=== PATIENT | male | born 1995 | race Caucasian/White ===

== ENCOUNTER 2022-04-18 10:36 | Inpatient (IN) ==
[2022-04-18] MEDS ORDERED: Naloxone 0.4 MG/ML INJ IVP PRN (12:53)
[2022-04-18] MEDS ORDERED: *HR* Heparin 5,000 UNIT/ML VIAL IVP PRN ×2 (12:56)
[2022-04-18] MEDS ORDERED: Ibuprofen 600 MG TABLET PO PRN (13:55)
[2022-04-18 14:26] LABS: Heparin anti-factor XA UFH 0.52 IU/mL (0.30-0.70)
[2022-04-18 14:36] LABS: INR 1.2; Prothrombin Time 12.9 Seconds (9.4-12.1)
[2022-04-18] MEDS: Heparin 25,000UNIT/250ML 1/2NS 25,000 UNIT/250 ML IV.SOLN IVC SCH (14:37)
[2022-04-18 14:42] LABS: Basophils # 0.1 K/mcL (0.0-0.2); Basophils % 1.1 %; Eosinophils # 0.4 K/mcL (0.0-0.6); Eosinophils % 6.1 %; Hematocrit 48.8 % (37.5-50.1); Hemoglobin 16.4 g/dL (12.9-16.9); Immature Granulocytes % 0.6 % (0-4); Lymphocytes # 2.1 K/mcL (0.6-4.6); Lymphocytes % 32.6 %; Mean Corpuscular HGB Conc 33.6 g/dL (31.6-35.5); Mean Corpuscular Volume 86.4 fL (83.0-100.0); Mean Platelet Volume 9.6 fL (9.4-12.4); Monocytes # 0.5 K/mcL (0.0-1.3); Neutrophils # 3.4 K/mcL (1.6-8.9); Platelet Count 197 K/mcL (140-400); Red Blood Count 5.65 M/mcL (4.19-5.50); Red Cell Distribution Width 12.8 % (11.5-14.5); Segmented Neutrophils % 52.6 %; White Blood Count 6.5 K/mcL (4.3-11.1)
[2022-04-18 15:27] LABS: Alanine Aminotransferase 11 Units/L (7-52); Albumin 4.2 g/dL (3.5-5.7); Albumin/Globulin Ratio 1.8 (1.1-2.2); Alkaline Phosphatase 47 Units/L (34-104); Aspartate Amino Transferase 11 Units/L (13-39); BUN/Creatinine Ratio 17 (6-26); Bilirubin,Total 0.7 mg/dL (0.3-1.0); Blood Urea Nitrogen 14 mg/dL (6-20); Calcium 9.1 mg/dL (8.6-10.3); Carbon Dioxide 26 mEq/L (23-29); Chloride 103 mEq/L (98-107); Globulin 2.3 g/dL (2.4-3.5); Glucose 133 mg/dL (70-105); Magnesium 1.8 mg/dL (1.6-2.6); Osmolality,Calculated 288 (280-300); Phosphorous 3.5 mg/dL (2.7-4.5); Potassium 4.1 mEq/L (3.5-5.1); Sodium 138 mEq/L (136-145); Total Protein 6.5 g/dL (6.4-8.9)
[2022-04-18] MEDS ORDERED: Warfarin perPT PO PRN (18:00)
[2022-04-18] MEDS ORDERED: *HR* Warfarin 5 MG TABLET PO ONE (18:00)
[2022-04-19 02:36] LABS: INR 1.1; Prothrombin Time 12.1 Seconds (9.4-12.1)
[2022-04-19] MEDS: Metoprolol XL (24 HR) Succ 25 MG TAB.ER.24H PO SCH (08:17)
[2022-04-19] MEDS: Acetaminophen 325 MG TABLET PO PRN ×2 (08:48→17:44)
[2022-04-19] MEDS: *HR* Enoxaparin 100 MG/ML SYRINGE SQ SCH ×2 (11:47→21:02)
[2022-04-19] MEDS: Heparin 25,000UNIT/250ML 1/2NS 25,000 UNIT/250 ML IV.SOLN IVC SCH (15:24)
[2022-04-19] MEDS ORDERED: *HR* Warfarin 5 MG TABLET PO ONE (18:00)
[2022-04-20 05:10] LABS: INR 1.1; Prothrombin Time 12.7 Seconds (9.4-12.1)
[2022-04-20] MEDS: Metoprolol XL (24 HR) Succ 25 MG TAB.ER.24H PO SCH (09:43)
[2022-04-20] MEDS: *HR* Enoxaparin 100 MG/ML SYRINGE SQ SCH ×2 (09:44→19:55)
[2022-04-20] MEDS ORDERED: Metoprolol XL (24 HR) Succ 25 MG TAB.ER.24H PO ONE (10:30)
[2022-04-20] MEDS ORDERED: *HR* Warfarin 7.5 MG TABLET PO ONE (18:00)
[2022-04-21 02:35] LABS: INR 1.4; Prothrombin Time 15.9 Seconds (9.4-12.1)
[2022-04-21] MEDS: *HR* Enoxaparin 100 MG/ML SYRINGE SQ SCH ×2 (07:32→20:42)
[2022-04-21] MEDS ORDERED: Metoprolol XL (24 HR) Succ 25 MG TAB.ER.24H PO SCH ×2 (09:00→21:00)
[2022-04-21] MEDS ORDERED: Metoprolol XL (24 HR) Succ 25 MG TAB.ER.24H PO ONE (10:30)
[2022-04-21] MEDS ORDERED: *HR* Warfarin 7.5 MG TABLET PO ONE (18:00)
[2022-04-22 01:56] LABS: INR 2.3; Prothrombin Time 25.6 Seconds (9.4-12.1)
[2022-04-22] MEDS: Metoprolol XL (24 HR) Succ 25 MG TAB.ER.24H PO SCH (09:50)
[2022-04-22] MEDS ORDERED: *HR* Warfarin 2.5 MG TABLET PO ONE (18:00)
[2022-04-23 00:37] VITALS: O2SAT 98
[2022-04-23 03:34] LABS: INR 2.6; Prothrombin Time 29.1 Seconds (9.4-12.1)
[2022-04-23 05:01] VITALS: PULSE 67; TEMP 97.4
[2022-04-23 07:04] VITALS: BP 111/60
[2022-04-23] MEDS: Metoprolol XL (24 HR) Succ 25 MG TAB.ER.24H PO SCH (08:47)
[2022-04-23] MEDS ORDERED: *HR* Warfarin 2.5 MG TABLET PO ONE (18:00)
== END 2022-04-23 11:45 | disposition home or self-care (01) | DRG 308 ==
LOC: 3NENU → SUATTDRO 04-20 15:06
PROVIDERS: ADMIT General Practice; ATTEND Internal Medicine